=== PATIENT | female | born 1990 ===

== ENCOUNTER → 2016-09-11 | Emergency (ER) | payer SELFPAY ==
[~2016-09-11] VITALS: Ht 167.6 cm; Wt 81.6 kg
[2016-09-11 08:46] VITALS: BP 140/68
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
== END ==
LOC: ER 08:34
DX: S00.83XA Contusion of other part of head, initial encounter (principal); S00.531A Contusion of lip, initial encounter; S20.212A Contusion of left front wall of thorax, initial encounter; Y04.0XXA Assault by unarmed brawl or fight, initial encounter; Y93.89 Activity, other specified; Y92.89 Other specified places as the place of occurrence of the external cause; Y99.8 Other external cause status
CPT/HCPCS: 81025; 99282